=== PATIENT | male | born 1950 | race Caucasian/White ===

== ENCOUNTER 2016-05-20 15:12 | Emergency (ER) | payer MEDICARE, OTHER ==
[2016-05-20 15:53] VITALS: BP 148/91
[2016-05-20] MEDS ORDERED: Tetan/Diph/Pertus SYR(Tdap)* 0.5 ML SYR(BOOSTRIX) use SYR IM ONE (17:04)
--- NOTE | 2016-05-20 17:37 | ED ---
Upper Extremity Pain - HPI Summary HPI Summary: Pt here with laceration to Lt thumb which occurred prior to arrival. Was unsheathing a sword when he accidentally sliced his thumb. Difficulty stopping bleeding so came here. Denies numbness, tingling, weakness. FROM thumb as well as other fingers and wrist. Knife was clean and w/o rust. He's not sure when his last tetanus vaccine was administered. - History of Current Complaint Chief Complaint: EDLacSutureRecheck Stated Complaint: LT FINGER LAC Hx Obtained From: Patient - Allergies/Home Medications Allergies/Adverse Reactions: Allergies Allergy/AdvReac Type Severity Reaction Status Date / Time No Known Allergies Allergy Verified 05/20/16 16:10 PMH/Surg Hx/FS Hx/Imm Hx Previously Healthy: Yes Endocrine/Hematology History: Denies: Hx Anticoagulant Therapy - 81mg ASA daily Cardiovascular History: Reports: Hx Coronary Artery Disease, Hx Hypertension, Hx Myocardial Infarction, Other Cardiovascular Problems/Disorders - quintuple bypass s/p OH GI History: Reports: Hx Gastroesophageal Reflux Disease Infectious Disease History: No Infectious Disease History: Denies: Traveled Outside the [place] in Last 30 Days - Family History Known Family History: Positive: None - Social History Occupation: Employed Full-time - self employed (policy writer) and [employer] Alcohol Use: Rare Substance Use Type: Reports: None Smoking Status (MU): Former Smoker Review of Systems Positive: no symptoms reported Musculoskeletal: Negative Skin: Other - see HPI Negative: Weakness, Paresthesia, Numbness Psychological: Normal All Other Systems Reviewed And Are Negative: Yes Physical Exam Triage Information Reviewed: Yes Vital Signs On Initial Exam: Initial Vitals Temp Pulse Resp BP Pulse Ox 98.5 F 70 17 148/91 98 05/20/16 15:47 05/20/16 15:47 05/20/16 15:47 05/20/16 15:47 05/20/16 15:47 Vital Signs Reviewed: Yes Appearance: Positive: Well-Appearing, No Pain Distress, Obese Skin: Positive: Warm - linear laceration over palmar surface of Lt thumb - deep , bleeding Head/Face: Positive: Normal Head/Face Inspection Eyes: Positive: Normal, EOMI ENT: Positive: Hearing grossly normal Respiratory/Lung Sounds: Positive: Breath Sounds Present Cardiovascular: Positive: Normal, Pulses are Symmetrical in both Upper and Lower Extremities Musculoskeletal: Positive: Normal, Strength/ROM Intact Neurological: Positive: Normal, Sensory/Motor Intact Psychiatric: Positive: Normal Procedures - Laceration/Wound Repair 1 Location: upper extremity - Lt thumb distal palmar aspect Description: Linear Anesthesia: Local - 1.5cc, Digital - 3cc, .5%, Marcaine Length, Depth and Shape: 1.5cm x4mm Betadine Prep?: Yes Irrigated w/ Saline (ccs): 250 - soaked in hibaclens solution Laceration/Wound Explored: clean Closure: Single Layer Suture Type: Nylon - 5-0 Number of Sutures: 4 Layer Closure?: No Sterile Dressing Applied?: Yes - triple antibiotic and sterile gauze dressing Diagnostics - Vital Signs Vital Signs Temp Pulse Resp BP Pulse Ox 05/20/16 15:47 98.5 F 70 17 148/91 98 - Laboratory Lab Statement: Any lab studies that have been ordered have been reviewed, and results considered in the medical decision making process. Course/Dx - Diagnoses Provider Diagnoses: Laceration of left thumb Discharge - Discharge Plan Condition: Stable Disposition: HOME Patient Education Materials: Care For Your Stitches (ED), Finger Laceration (ED ) Additional Instructions: Keep dressing clean, dry and intact for 48 hours - after this time, you may remove dressing and gently wash wound with soap and water - rinse well and pat dry then reapply triple antibiotic ointment and clean gauze. Rest, ice, elevate and keep dressing in place for pressure Take ibuprofen with food as needed for pain Follow-up with PCP in 10-14 days for wound check and suture removal. *If you develop redness, swelling, purulent drainage, streaking, fever or tendon pain, seek medical attention sooner
== END 2016-05-20 17:30 | disposition home or self-care (01) ==
LOC: ED 15:12
DX: S61.012A Laceration without foreign body of left thumb without damage to nail, initial encounter (principal); W26.1XXA Contact with sword or dagger, initial encounter; Y92.9 Unspecified place or not applicable; I25.10 Atherosclerotic heart disease of native coronary artery without angina pectoris; I10 Essential (primary) hypertension; I25.2 Old myocardial infarction; Z79.82 Long term (current) use of aspirin; K21.9 Gastro-esophageal reflux disease without esophagitis; Z87.891 Personal history of nicotine dependence
CPT/HCPCS: 12001; 90471; 90715; 99281

== ENCOUNTER → 2018-02-04 13:15 | Emergency (ER) | payer MEDICARE, OTHER ==
[2018-02-04 14:18] LABS: ABS Basophils 0.1 10^3/ul (0-0.2); ABS Eosinophils 0.4 10^3/ul (0-0.6); ABS Lymphocytes 1.8 10^3/ul (1.0-4.8); ABS Monocytes 0.7 10^3/ul (0-0.8); ABS Neutrophils 5.1 10^3/ul (1.5-7.7); ABS Nucleated RBC 0 10^3/ul; Eosinophil % 4.6 % (0-6); Hematocrit 45 % (42-52); Hemoglobin 15.4 g/dl (14.0-18.0); Mean Corpuscular HGB Conc 34 g/dl (31-36); Mean Corpuscular Hemoglobin 30 pg (27-31); Mean Corpuscular Volume 87 fL (80-94); Mean Platelet Volume 7.7 um3 (7.4-10.4); Nucleated Red Blood Cells % 0.1; Platelet Count 221 10^3/ul (150-450); Red Blood Count 5.22 10^6/ul (4.00-5.40); Red Cell Distribution Width 14 % (10.5-15); White Blood Count 8.1 10^3/ul (3.5-10.8)
[2018-02-04 14:34] LABS: EGFR Non-African American 88.4 (>60)
--- NOTE | 2018-02-04 14:57 | RAD ---
INDICATION: Cough. Coronary artery disease with prior OH and bypass. Respiratory disease. COMPARISON: No relevant prior exams available on [place] [facility] [place]. TECHNIQUE: Dual energy PA and routine lateral views of the chest were obtained. REPORT: Clear lungs and pleural spaces. Negative for pneumothorax. Median sternotomy wires. The heart, pulmonary vasculature, and mediastinal contours are unremarkable. Unremarkable osseous structures and soft tissue contours. IMPRESSION: #. No evidence for acute intrathoracic disease.
--- NOTE | 2018-02-04 15:47 | ED ---
Respiratory - HPI Summary HPI Summary: This patient is a 68 year old M presenting to [facility] c/o URI sx for the last 4 days. The patient rates the pain 0/10 in severity. Symptoms alleviated by nothing, he states he has taken OTC meds without relief. Patient reports fever, chills, trouble breathing, clear productive cough, and disrupted sleep. Patient denies CP and decreased appetite. - History of Current Complaint Chief Complaint: EDFluSymptoms Stated Complaint: GENERAL ILLNESS Time Seen by Provider: 02/04/18 15:41 Hx Obtained From: Patient Onset/Duration: Lasting Days - 4, Still Present Timing: Constant Initial Severity: Mild Current Severity: Mild Pain Intensity: 0 Character: Cough (Productive) Sputum Amount: Small Sputum Color: Clear Alleviating Factor(s): Nothing Associated Signs and Symptoms: Negative - CP - Allergy/Home Medications Allergies/Adverse Reactions: Allergies Allergy/AdvReac Type Severity Reaction Status Date / Time No Known Allergies Allergy Verified 05/20/16 16:10 PMH/Surg Hx/FS Hx/Imm Hx Endocrine/Hematology History: Denies: Hx Anticoagulant Therapy - 81mg ASA daily Cardiovascular History: Reports: Hx Coronary Artery Disease, Hx Hypertension, Hx Myocardial Infarction, Other Cardiovascular Problems/Disorders - quintuple bypass s/p [place] Respiratory History: Reports: Other Respiratory Problems/Disorders - allergies, meds daily GI History: Reports: Hx Gastroesophageal Reflux Disease Infectious Disease History: No Infectious Disease History: Denies: Traveled Outside the [place] in Last 30 Days - Family History Known Family History: Positive: None, Cardiac Disease Negative: Hypertension, Renal Disease - Social History Alcohol Use: Rare Substance Use Type: Reports: None Smoking Status (MU): Former Smoker Review of Systems Constitutional: Negative - decreasd appetite Positive: Fever, Chills, Other - trouble sleeping Negative: Chest Pain Positive: Cough, Other - trouble breathing All Other Systems Reviewed And Are Negative: Yes Physical Exam - Summary Physical Exam Summary: Appearance: Well-appearing, Well-nourished, lying in bed comfortably Skin: Warm, dry, no obvious rash Eyes: sclera anicteric, no conjunctival pallor ENT: mucous membranes moist, pharynx appears normal Neck: Supple, nontender Respiratory: Clear to auscultation, no signs of respiratory distress Cardiovascular: Normal S1, S2. No murmurs. Normal distal pulses in tibial and radial bilaterally. Abdomen: Soft, nontender, normal active bowel sounds present Musculoskeletal: Normal, Strength/ROM Intact Neurological: A&Ox3, awake and alert, mentation is normal, speech is fluent and appropriate Psychiatric: affect is normal, does not appear anxious or depressed Triage Information Reviewed: Yes Vital Signs On Initial Exam: Initial Vitals Temp Pulse Resp BP Pulse Ox 96.9 F 61 20 150/85 94 02/04/18 13:30 02/04/18 13:30 02/04/18 13:30 02/04/18 13:30 02/04/18 13:30 Vital Signs Reviewed: Yes Diagnostics - Vital Signs Vital Signs Temp Pulse Resp BP Pulse Ox 02/04/18 13:30 96.9 F 61 20 150/85 94 - Laboratory Lab Results: Lab Results 02/04/18 02/04/18 02/04/18 Range/Units 13:55 14:10 14:10 WBC 8.1 (3.5-10.8) 10^3/ul RBC 5.22 (4.00-5.40) 10^6/ul Hgb 15.4 (14.0-18.0) g/dl Hct 45 (42-52) % MCV 87 (80-94) fL MCH 30 (27-31) pg MCHC 34 (31-36) g/dl RDW 14 (10.5-15) % Plt Count 221 (150-450) 10^3/ul MPV 7.7 (7.4-10.4) um3 Neut % (Auto) 63.1 (38-83) % Lymph % (Auto) 22.0 L (25-47) % [place] % (Auto) 9.1 H (0-7) % Eos % (Auto) 4.6 (0-6) % Baso % (Auto) 1.2 (0-2) % Absolute Neuts (auto) 5.1 (1.5-7.7) 10^3/ul Absolute Lymphs (auto) 1.8 (1.0-4.8) 10^3/ul Absolute Monos (auto) 0.7 (0-0.8) 10^3/ul Absolute Eos (auto) 0.4 (0-0.6) 10^3/ul Absolute Basos (auto) 0.1 (0-0.2) 10^3/ul Absolute Nucleated RBC 0 10^3/ul Nucleated RBC % 0.1 Sodium 136 (135-145) mmol/L Potassium 4.6 (3.5-5.0) mmol/L Chloride 104 (101-111) mmol/L Carbon Dioxide 26 (22-32) mmol/L Anion Gap 6 (2-11) mmol/L BUN 18 (6-24) mg/dL Creatinine 0.86 (0.67-1.17) mg/dL Est GFR ( Amer) 107.0 (>60) Est GFR (Non-Af Amer) 88.4 (>60) BUN/Creatinine Ratio 20.9 H (8-20) Glucose 109 H (70-100) mg/dL Calcium 9.3 (8.6-10.3) mg/dL Total Bilirubin 0.30 (0.2-1.0) mg/dL AST 22 (13-39) U/L ALT 31 (7-52) U/L Alkaline Phosphatase 52 (34-104) U/L Total Protein 5.5 L (6.4-8.9) g/dL Albumin 3.4 (3.2-5.2) g/dL Globulin 2.1 (2-4) g/dL Albumin/Globulin Ratio 1.6 (1-3) Influenza A (Rapid) Negative (Negative) Influenza B (Rapid) Negative (Negative) Result Diagrams: 02/04/18 14:10 02/04/18 14:10 Lab Statement: Any lab studies that have been ordered have been reviewed, and results considered in the medical decision making process. - Radiology CXR Radiology Interpretation Completed By: Radiologist - No evidence for acute intrathoracic disease. ED physician has reviewed this radiology report. Disposition - Course Assessment/Plan: This patient is a 68 year old M presenting to [facility] c/o URI sx for the last 4 days. The patient rates the pain 0/10 in severity. Symptoms alleviated by nothing, he states he has taken OTC meds without relief. Patient reports fever, chills, trouble breathing, clear productive cough, and disrupted sleep. Patient denies CP and decreased appetite. CXR reveals, per radiologist, No evidence for acute intrathoracic disease. Blood work obtained. Flu swabs were negative. Dx acute bronchitis. Patient will be discharged with prescription for tussionex and follow up from [facility]. The patient is agreeable with this plan. - Diagnoses Provider Diagnoses: Acute bronchitis Discharge - Sign-Out/Discharge Documenting (check all that apply): Patient Departure - Discharge Plan Condition: Good Disposition: HOME Prescriptions: Hydrocodone/Chlorphen P-Stirex [Tussionex Pennkinetic Susp] 5 ml PO BID PRN #60 ml MDD 10 ml PRN Reason: Cough Patient Education Materials: Acute Bronchitis (ED) Referrals: [facility] [Outside] No Primary Care Phys,NOPCP [Primary Care Provider] - - Billing Disposition and Condition Condition: GOOD Disposition: Home - Attestation Statements Document Initiated by Scribe: Yes Documenting Scribe: Joon Kendall Provider For Whom Sparkle is Documenting (Include Credential): Lane Heibindia Attestation: Joon Bedoya scribed for Lane Fisher M.D. on 02/05/18 at 1027. Scribe Documentation Reviewed: Yes Provider Attestation: The documentation as recorded by the Joon jackson accurately reflects the service I personally performed and the decisions made by Lane parish M.D.
[2018-02-04 16:03] VITALS: BP 151/89
== END | disposition home or self-care (01) ==
LOC: ED 13:15
DX: J20.9 Acute bronchitis, unspecified (principal); I25.10 Atherosclerotic heart disease of native coronary artery without angina pectoris; I10 Essential (primary) hypertension; I25.2 Old myocardial infarction; Z87.891 Personal history of nicotine dependence; Z95.1 Presence of aortocoronary bypass graft
CPT/HCPCS: 36415; 71046; 80053; 85025; 99281